=== PATIENT | male | born 1975 | race Caucasian/White ===

== ENCOUNTER 2019-02-25 18:10 | Emergency (ER) | payer SELFPAY ==
[~2019-02-25] VITALS: Ht 172.7 cm; Wt 72.6 kg
[2019-02-25 18:13] VITALS: BP 141/88
[2019-02-25] MEDS ORDERED: KETOROLAC 60 MG/2 ML VIAL IM ONE (18:45)
[2019-02-25 19:37] LABS: BASOPHILS % (AUTO) 0.6 % (0.0-2.0); HEMATOCRIT 36.3 % (36-52); LYMPHOCYTES # (AUTO) 1.1 K/uL (2.0-11.5); LYMPHOCYTES % (AUTO) 20.3 % (20.5-51.1); MEAN CORPUSCULAR HEMOGLOBIN 31 pg (27-31); MEAN CORPUSCULAR HGB CONC 33 g/dL (33-37); MEAN CORPUSCULAR VOLUME 92.9 fL (80-94); MONOCYTES # (AUTO) 0.8 K/uL (0.8-1.0); NEUTROPHILS # (AUTO) 3.7 K/uL (1.8-7.7); NEUTROPHILS % (AUTO) 65.1 % (42.2-75.2); PLATELET COUNT (AUTO) 148 K/uL (140-450); RED BLOOD CELL COUNT(AUTO) 3.91 MIL/uL (4.20-6.10); RED CELL DISTRIBUTION WIDTH 15.5 % (11.6-13.7); WHITE BLOOD COUNT (AUTO) 5.7 K/uL (4.8-10.8)
[2019-02-25 19:55] LABS: ALBUMIN 4.1 g/dL (3.4-5.0); ANION GAP 20.1 (8-16); CARBON DIOXIDE 22.6 mmol/L (21-32); CREATININE 0.7 mg/dL (0.7-1.3); POTASSIUM 3.7 mmol/L (3.5-5.1); TOTAL BILIRUBIN 0.7 mg/dL (0.0-1.0)
[2019-02-25 21:00] VITALS: BP 125/76
== END 2019-02-25 21:00 | disposition home or self-care (01) ==
LOC: MED 18:10
DX: M25.572 Pain in left ankle and joints of left foot (principal); G89.29 Other chronic pain; F19.10 Other psychoactive substance abuse, uncomplicated; R03.0 Elevated blood-pressure reading, without diagnosis of hypertension; F17.210 Nicotine dependence, cigarettes, uncomplicated; F15.10 Other stimulant abuse, uncomplicated
CPT/HCPCS: 36415; 73610; 73630; 80053; 85025; 93971; 96372; 99284; J1885; Q0092